=== PATIENT | female | born 1985 | race Two or more races ===

== ENCOUNTER 2018-08-22 17:11 | Emergency (ER) | payer OTHER ==
[~2018-08-22] VITALS: Ht 149.9 cm; Wt 52.6 kg
[~2018-08-22 17:11] MED LIST: AZITHROMYCIN250 MG PO; DESPEC-DM TABL1 EACH PO; KETO10TA2 PO; MEDROL4 MG PO; OMEPRAZOLE40 MG PO; TUSSI PRES-B L120 M1 PO; ZANTAC150 MG PO; ZITHROMAX PO
== END 2018-08-22 19:09 | disposition home or self-care (01) ==
LOC: ER 17:11
DX: F41.0 Panic disorder [episodic paroxysmal anxiety] (principal)

== ENCOUNTER 2025-01-12 11:14 | Emergency (ER) | payer OTHER ==
[~2025-01-12] VITALS: Ht 149.9 cm; Wt 56.7 kg
== END 2025-01-12 14:47 | disposition home or self-care (01) ==
LOC: ER 11:15
DX: J32.9 Chronic sinusitis, unspecified (principal); Z88.0 Allergy status to penicillin